=== PATIENT | female | born 1995 | race Two or more races ===

== ENCOUNTER 2017-12-05 10:48 | Inpatient (IN) | payer OTHER ==
[~2017-12-05] VITALS: Ht 157.5 cm; Wt 57.2 kg
[2017-12-05 11:55] LABS: RED CELL DISTRIBUTION WIDTH 13.4 % (11.5-14.5)
[2017-12-05 11:58] LABS: BASOPHIL % 0.2 % (0-2); PLATELET COUNT 260 x10^3mcL (130-400)
[2017-12-05 12:13] LABS: ALBUMIN 4.1 g/dL (3.4-5.0); ALKALINE PHOSPHATASE 285 U/L (46-116); ALT/SGPT 7 U/L (14-59); AST/SGOT 14 U/L (15-37); BILIRUBIN TOTAL 0.68 mg/dL (0.20-1.00); CALCIUM 9.7 mg/dL (8.5-10.1); CARBON DIOXIDE 16.6 mmol/L (21-32); CHLORIDE SERUM 89 mmol/L (98-107); CREATININE SERUM 1.1 mg/dL (0.6-1.0); GFR1 > 60 mL/min; LIPASE 125 IU/L (73-393); SODIUM SERUM 127 mmol/L (136-145); TOTAL PROTEIN, SERUM 8.2 g/dL (6.4-8.2)
[2017-12-05 12:16] LABS: GLUCOSE SERUM 712 mg/dL (74-106); POTASSIUM SERUM 6.1 mmol/L (3.5-5.1)
[2017-12-05] MEDS ORDERED: BASAGLAR K100 UNIT/1 SQ (12:53)
[2017-12-05] MEDS ORDERED: HUMALOG100 UNIT/1 SQ (12:54)
[2017-12-05 13:02] LABS: microscopic required? NO
[2017-12-05 13:26] LABS: T3 TOTAL 0.83 ng/mL
[2017-12-05 13:32] LABS: urine erythrocyte NEGATIVE (NEGATIVE)
[2017-12-05 13:40] LABS: AMPHETAMINE QUAL UR NONE DETECTED (See below)
[2017-12-05 13:48] LABS: FREE T4 0.95 ng/dL (0.76-1.46); FREE THYROXINE INDEX 2.3 ug/dL (1.4-4.5); T4(THYROXINE) 7.1 ug/dL (4.7-13.3)
[2017-12-05 14:41] LABS: MAGNESIUM 1.9 mg/dL (1.8-2.4); PHOSPHOROUS 4.3 mg/dL (2.5-4.9)
[2017-12-05 15:07] LABS: CHOLESTEROL/HDL RATIO 5.6
[2017-12-05 15:27] VITALS: BP 86/46
[2017-12-05 16:03] LABS: CARBON DIOXIDE 17.5 mmol/L (21-32); CHLORIDE SERUM 101 mmol/L (98-107); CREATININE SERUM 0.8 mg/dL (0.6-1.0); GFR1 > 60 mL/min; GLUCOSE SERUM 236 mg/dL (74-106); MAGNESIUM 2.1 mg/dL (1.8-2.4); POTASSIUM SERUM 4.3 mmol/L (3.5-5.1); SODIUM SERUM 138 mmol/L (136-145)
[2017-12-05 19:30] VITALS: BP 109/68
[2017-12-05 20:20] LABS: CARBON DIOXIDE 21.6 mmol/L (21-32); CHLORIDE SERUM 104 mmol/L (98-107); CREATININE SERUM 0.6 mg/dL (0.6-1.0); GFR1 > 60 mL/min; GLUCOSE SERUM 166 mg/dL (74-106); MAGNESIUM 1.7 mg/dL (1.8-2.4); PHOSPHOROUS 2.5 mg/dL (2.5-4.9); POTASSIUM SERUM 3.7 mmol/L (3.5-5.1); SODIUM SERUM 137 mmol/L (136-145)
[2017-12-05 23:11] VITALS: BP 134/83
[2017-12-06 01:11] LABS: CALCIUM 8.2 mg/dL (8.5-10.1); CHLORIDE SERUM 105 mmol/L (98-107); CREATININE SERUM 0.8 mg/dL (0.6-1.0); GFR1 > 60 mL/min; GLUCOSE SERUM 228 mg/dL (74-106); MAGNESIUM 1.7 mg/dL (1.8-2.4); PHOSPHOROUS 2.4 mg/dL (2.5-4.9); POTASSIUM SERUM 3.6 mmol/L (3.5-5.1); SODIUM SERUM 136 mmol/L (136-145)
[2017-12-06 03:51] VITALS: BP 106/59
[2017-12-06 06:17] LABS: CARBON DIOXIDE 23.5 mmol/L (21-32); CHLORIDE SERUM 107 mmol/L (98-107); CREATININE SERUM 0.7 mg/dL (0.6-1.0); GFR1 > 60 mL/min; GLUCOSE SERUM 74 mg/dL (74-106); MAGNESIUM 1.4 mg/dL (1.8-2.4); PHOSPHOROUS 2.9 mg/dL (2.5-4.9); SODIUM SERUM 140 mmol/L (136-145)
[2017-12-06 06:21] LABS: POTASSIUM SERUM 2.8 mmol/L (3.5-5.1)
[2017-12-06 07:50] VITALS: BP 119/76
[2017-12-06 08:19] VITALS: Ht 157.5 cm; Wt 57.2 kg
[2017-12-06 08:28] LABS: BASOPHIL % 0.3 % (0-2); PLATELET COUNT 254 x10^3mcL (130-400); RED CELL DISTRIBUTION WIDTH 13.5 % (11.5-14.5)
[2017-12-06 08:29] LABS: CALCIUM 7.6 mg/dL (8.5-10.1); CHLORIDE SERUM 105 mmol/L (98-107); CREATININE SERUM 0.7 mg/dL (0.6-1.0); GFR1 > 60 mL/min; GLUCOSE SERUM 305 mg/dL (74-106); MAGNESIUM 1.5 mg/dL (1.8-2.4); PHOSPHOROUS 2.9 mg/dL (2.5-4.9); SODIUM SERUM 137 mmol/L (136-145)
[2017-12-06 11:40] VITALS: BP 109/72
[2017-12-06 15:05] VITALS: BP 120/79
[2017-12-06 17:25] VITALS: BP 113/64
[2017-12-07 05:02] VITALS: BP 104/62
[2017-12-07 08:35] VITALS: BP 108/68
[2017-12-07 10:40] LABS: CALCIUM 8.2 mg/dL (8.5-10.1); CARBON DIOXIDE 24.6 mmol/L (21-32); CHLORIDE SERUM 106 mmol/L (98-107); CREATININE SERUM 0.6 mg/dL (0.6-1.0); GFR1 > 60 mL/min; GLUCOSE SERUM 197 mg/dL (74-106); MAGNESIUM 1.1 mg/dL (1.8-2.4); POTASSIUM SERUM 3.9 mmol/L (3.5-5.1); SODIUM SERUM 139 mmol/L (136-145)
== END 2017-12-07 20:54 | disposition home or self-care (01) | DRG 420 ==
LOC: ED 10:48 → IC 12:43 → DU 12:43 → IC 14:04 → DU 12-06 15:00
PROVIDERS: Emergency Medicine; Internal Medicine
DX: E10.10 Type 1 diabetes mellitus with ketoacidosis without coma (principal); E02 Subclinical iodine-deficiency hypothyroidism; E78.2 Mixed hyperlipidemia; Z79.4 Long term (current) use of insulin; Z68.22 Body mass index [BMI] 22.0-22.9, adult
CPT/HCPCS: 36600; 82962; 83880; 84439; J1815; J2405; J3475; J3480; J3490; J7030; Q0092

== ENCOUNTER 2018-05-10 18:58 | Emergency (ER) | payer OTHER ==
[~2018-05-10] VITALS: Ht 157.5 cm; Wt 69.6 kg
[~2018-05-10 18:58] MED LIST: BASAGLAR K100 UNIT/1 SQ; HUMALOG100 UNIT/1 SQ
[2018-05-10 19:36] VITALS: Ht 157.5 cm; Wt 69.6 kg
[2018-05-10 21:00] VITALS: BP 133/78
== END 2018-05-10 21:00 | disposition home or self-care (01) ==
LOC: ED 18:58
DX: O26.892 Other specified pregnancy related conditions, second trimester (principal); K02.9 Dental caries, unspecified; Z3A.23 23 weeks gestation of pregnancy

== ENCOUNTER 2018-06-05 16:01 | Emergency (ER) | payer OTHER ==
[~2018-06-05] VITALS: Ht 157.5 cm; Wt 68.9 kg
[2018-06-05 16:17] VITALS: BP 127/81; Ht 157.5 cm; Wt 68.9 kg
== END 2018-06-05 18:48 | disposition home or self-care (01) ==
LOC: ED 16:01
DX: H61.23 Impacted cerumen, bilateral (principal); E10.9 Type 1 diabetes mellitus without complications